=== PATIENT | female | born 1990 | race Caucasian/White ===

== ENCOUNTER 2018-06-25 08:23 | Day surgery (SDC) | payer MEDICAID ==
[2018-06-25 09:27] LABS: BASOPHILS 0.2 % (0-2); EOSINOPHILS 1.6 % (0-7); HEMATOCRIT 41.7 % (36.0-48.0); HEMOGLOBIN 14.3 g/dL (12-16); IMMATURE GRANULOCYTES 0.3 % (0-5); LYMPHOCYTES 16.6 % (15-50); MCH 33.3 pg (26.0-34.0); MCHC 34.3 g/dL (31.0-37.0); MONOCYTES 9.3 % (2-11); RDW 13.1 % (11.5-14.5); WBC 9.2 10x3/uL (4.8-10.8)
[2018-06-25 09:29] LABS: PLATELET COUNT 307 10x3/uL (130-400)
[2018-06-25 09:42] LABS: HCG SERUM POSITIVE (NEGATIVE)
[2018-06-25 09:46] VITALS: BP 136/80; BMI 31.9
--- NOTE | 2018-06-25 14:42 | NUR ---
CONSULTED ANESTHESIA REGARDING ELEVATED BLOOD PRESSURE 177/120. VERBAL ORDERS RECEIVED FROM DR. PEÑA TO ADMINISTER MORPHINE 2MG X1 IN PACU NOW. ORDERS RECEIVED AND IMPLEMENTED.
--- NOTE | 2018-06-25 15:10 | NUR ---
REC'D FROM RR. FRIEND AT BEDSIDE. ON BEDPAN. VERY TEARFUL. NO VOID.
--- NOTE | 2018-06-25 15:33 | NUR ---
CYTOTEC 200MCG PO ADMINISTERED PER ORDERS.
--- NOTE | 2018-06-25 15:40 | NUR ---
BACK ON BEDPAN. VOIDED LARGE AMOUNT. STILL TEARFUL.FRIEND AT BEDSIDE.
--- NOTE | 2018-06-25 15:55 | NUR ---
FL TRAY BROUGHT TO PT.
--- NOTE | 2018-06-25 16:33 | NUR ---
IV DC'D WITH CATHETER INTACT. UP TO BATHROOM AND VOIDING WITHOUT DIFFICULTY.
--- NOTE | 2018-06-25 16:55 | NUR ---
DC'D HOME WITH FAMILY VIA PRIVATE VEHICLE. TAKEN TO VEHICLE VIA WC. STABLE AT TIME OF DC.
--- NOTE | 2018-06-30 16:03 | OP ---
PATIENT NAME: PEDRO PABLO PRECIADO MEDICAL RECORD: [id number] :89 LOCATION:D.OPS ADMISSION DATE: SURGEON: LEONID AMIN MD DATE OF OPERATION: 06/25/2018 PREOPERATIVE DIAGNOSIS: Missed . POSTOPERATIVE DIAGNOSIS: Missed . PROCEDURE: Dilation and evacuation with curettage. SURGEON: Leonid Amin MD COOK APPRENTICE PASTRY: Andrew Maguire ANESTHESIOLOGIST: Dr. Wagner. ANESTHESIA: General. FINDINGS: Uterus is enlarged to approximately 9-week size. At the time of suction D and E necrotic polyp returned. A good cry obtained throughout with curette. SPECIMENS REMOVED: Products of conception. SPECIMEN DISPOSITION: Pathology. ESTIMATED BLOOD LOSS: 300 cc. FLUIDS: 1300 of lactated Ringer's. URINE OUTPUT: Void prior to the procedure. COMPLICATIONS: Uterine atony. INDICATIONS: The patient is a 27-year-old female with no known missed . The patient is consented for dilation and evacuation and any indicated procedure. DESCRIPTION OF PROCEDURE: After informed consent was assured, the patient was taken to the operating room where anesthetic was obtained. The patient is in Alexey stirrups and prepped and draped in the usual sterile fashion. Weighted speculum was introduced into the vagina and the cervix grasped with a single tooth tenaculum. The cervix is now sequentially dilated to accommodate an 8 curved suction curette. Despite the curette was passed gently to the fundus and suction activated. After several passes, tissue was removed. A #1 curette is now used to obtain a good cry throughout. At the close of the procedure, the uterine felt to involute and increased blood loss encountered. Methergine, Hemabate, and 1000 mg of TXA given to obtain hemostasis. Minimal bleeding noted at the close of this procedure. The patient was awakened and went to the recovery room in stable condition. TRANSINT:[id number] Voice Confirmation ID: [id number] DOCUMENT ID: [id number] OPERATIVE REPORT [id number] ILANADUNIALEONID MCKINNEY MD at 1603 CC: [id number] DICTATION DATE: 06/25/18 1400 AUT[employer] SERVICE MECHANIC: 06/25/18 2130 [facility] 06/25/18 [facility] [address] [place] [address]
== END 2018-06-25 16:55 | disposition home or self-care (01) ==
LOC: D.OPS 08:23 → D.PAN 12:30 → D.OPS 15:00
PROVIDERS: Anesthesiology; ATTEND Obstetrics & Gynecology
DX: O02.1 Missed abortion (principal); Z01.812 Encounter for preprocedural laboratory examination